=== PATIENT | female | born 1975 | race Caucasian/White ===

== ENCOUNTER 2023-05-27 08:30 | Outpatient (CLI) | payer BC | END 2023-05-27 08:31 | disposition home or self-care (01) | LOC: CSHMAMMO 08:30 | PROVIDERS: ATTEND Obstetrics & Gynecology | DX: Z12.31 Encounter for screening mammogram for malignant neoplasm of breast (principal); N63.10 Unspecified lump in the right breast, unspecified quadrant | CPT/HCPCS: 77063; 77067 ==